=== PATIENT | female | born 1960 | race African-American/Black ===

== ENCOUNTER 2021-01-01 13:38 | Outpatient (CLI) | payer BC ==
--- NOTE | 2021-01-02 08:38 | Mammography Report ---
BILATERAL DIGITAL SCREENING MAMMOGRAM WITH CAD HISTORY: Screening mammogram. TECHNIQUE: Routine digital mammographic imaging performed. This examination was interpreted with rahul velarde benefit of Computer-aided Detection analysis. COMPARISON: 03/09/2019, 02/09/2016. FINDINGS: Breast Density: predominantly fatty breast parenchymal pattern. Digital CC and MLO views demonstrate a focal asymmetry in the right lateral breast. No suspicious fi ndings within the left breast. IMPRESSION: Right lateral breast focal asymmetry for which additional mammographic views and possible ultrasound is recommended. BIRADS 0-Incomplete: Needs additional imaging evaluation NOTE: WE WILL RECALL THE PATIENT FOR THIS ADDITIONAL EVALUATION. FURTHER INFORMATION: According to the [employer], yearly mammograms are recommend ed starting at age 40 and continuing as long as a woman is in good health. Clinical Breast Exams shou ld be part of a periodic health exam-about every 3 years for women in their 20s and 30s and every yea r for women 40 and over. Breast self exam is an option for women starting in their 20s. Any breast ch juanita noted on a breast self exam should be reported promptly to the patient's healthcare provider. Br east MRI is recommended for women with an approximately 20-25% or greater lifetime risk of breast can cer, including women with a strong family history of breast or ovarian cancer and women who have been treated for Hodgkin's disease. A negative Mammography report should not discourage follow up or biopsy of a clinically significant f inding and/or abnormality. Dense breast tissue may obscure small neoplasms. The patient will be entered into a reminder system with a target due date for the next screening mamm ogram. Signer Name: Devyn Medina MD Signed: 01/02/2021 8:33 AM Workstation Name: [id number]
== END 2021-01-01 13:39 | disposition home or self-care (01) ==
LOC: SPVWC 13:38
PROVIDERS: ATTEND Internal Medicine
DX: Z12.31 Encounter for screening mammogram for malignant neoplasm of breast (principal)
CPT/HCPCS: 77067

== ENCOUNTER 2021-08-23 13:30 | Outpatient (CLI) | payer OTHER ==
--- NOTE | 2021-08-23 15:42 | Mammography Report ---
RIGHT DIGITAL DIAGNOSTIC MAMMOGRAM WITH CAD CONVENTIONAL, 08/23/2021 RIGHT LIMITED BREAST ULTRASOUND CLINICAL INFORMATION / INDICATION: ABNORMAL MAMMOGRAM TECHNIQUE: Digital right mammographic imaging was performed. Spot compression views were obtained. Li mited ultrasound was performed. This examination was interpreted with the benefit of Computer-Aided D etection (CAD) analysis. COMPARISON: 01/01/2021, 03/09/2019 FINDINGS: Breast Density: There are scattered areas of fibroglandular density. MAMMOGRAPHIC FINDINGS: Focal asymmetric density in the right breast persists on spot compression view s. On review of the 2019 study it appears that this density is unchanged in size though it is better demonstrated on the more recent exams. ULTRASOUND FINDINGS: Targeted ultrasound evaluation was performed of the area of interest. On ultra sound a small lymph node is noted in the lateral right breast likely corresponding to an intramammary node seen on mammogram and stable on mammograms. A second smaller nodule seen in the 10:00 position 5 cm from the nipple measures approximately 7 cm and may correspond to the mammographic abnormality. IMPRESSION: Nodule in the right breast is stable since December and appears to be stable since 2018 bu t is better demonstrated on more recent studies. Ultrasound shows 2 nodules one of which has the appe arance of an intramammary lymph node and corresponds to an intramammary node seen on mammography. Sec ond less distinct measuring approximately 7 mm and may also represent an intramammary node but is les s well defined. Follow up recommendation: Short term follow up in 6 months. BI-RADS Category 3: PROBABLY BENIGN. Followup in 6 months. A "normal" or negative report should not discourage follow up or biopsy of a clinically significant f inding. A written summary of these findings will be mailed to the patient. The patient will be entered into a mammography reporting system which will generate a reminder letter for the patient's next appointmen t at the appropriate interval. According to the [employer], yearly mammograms are recommended starting at age 40 and continuing as long as a woman is in good health. Breast MRI is recommended for women with an kris roximately 20-25% or greater lifetime risk of breast cancer, including women with a strong family his tory of breast or ovarian cancer and women who have been treated for Hodgkin's disease. Signer Name: Richmond Torres MD Signed: 08/23/2021 3:38 PM Workstation Name: [id number]
== END 2021-08-23 13:31 | disposition home or self-care (01) ==
LOC: MAMMO 13:30
PROVIDERS: ATTEND Internal Medicine
DX: N63.10 Unspecified lump in the right breast, unspecified quadrant (principal); N64.89 Other specified disorders of breast; R92.8 Other abnormal and inconclusive findings on diagnostic imaging of breast